=== PATIENT | male | born 1960 | race African-American/Black ===

== ENCOUNTER 2016-11-27 13:10 | Outpatient (CLI) | payer OTHER ==
--- NOTE | 2016-11-27 14:05 | RAD ---
FIVE VIEWS CERVICAL SPINE: Indication: Neck pain, radiculopathy. Comparison: None. 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 There is straightening of the normal cervical lordosis. Prevertebral soft tissues are normal appearing. Lateral masses are symmetric. The osseous neural foramina demonstrate mild narrowing on the left at C3-4, C4-5, and C5 -6. Lung apices are clear. IMPRESSION: Moderate spondylosis. POS: [facility]
== END 2016-11-27 13:11 | disposition home or self-care (01) ==
LOC: MADRAD 13:10
PROVIDERS: ATTEND Orthopaedic Surgery Orthopaedic Surgery of the Spine
DX: M48.02 Spinal stenosis, cervical region (principal); M47.22 Other spondylosis with radiculopathy, cervical region; M54.2 Cervicalgia
CPT/HCPCS: 72050

== ENCOUNTER 2017-01-02 10:18 | Outpatient (CLI) | payer OTHER ==
[2017-01-02 10:53] LABS: PTT 27.8 SEC (22.9-36.1); Prothrombin Time 13.1 SEC (12.0-14.7)
[2017-01-02 10:59] LABS: #Basophils 0.1 thou/uL (0.0-0.2); #Eosinphils 0.2 thou/uL (0.0-0.7); #Lymphocytes 2.6 thou/uL (1.20-3.40); #Monocytes 0.7 thou/uL (0.11-0.59); #Neutrophils 3.6 thou/uL (1.40-6.50); %Eosinophils 3.1 % (0.0-10.0); %Lymphocytes 35.8 % (21.0-51.0); %Monocytes 9.4 % (0.0-10.0); %Neutrophils 49.7 % (42.0-75.0); Hemoglobin 15.1 g/dL (14.0-18.0); Mean Corpuscular HGB CONC 32.9 g/dL (32.0-36.0); Mean Corpuscular Hemoglobin 30.6 pg (27.0-31.0); Mean Platelet Volume 6.8 fL (7.4-10.4); Platelet Count 215 thou/uL (130-400); RBC Distribution Width 12.3 % (11.5-14.5); Red Blood Cell (RBC) Count 4.96 mill/uL (4.70-6.10); White Blood Cell (WBC) Count 7.3 thou/uL (4.8-10.8)
[2017-01-02 11:03] LABS: ALT (SGPT) 7 U/L (8-55); AST (SGOT) 20 U/L (5-34); Albumin 4.1 g/dL (3.5-5.0); Alkaline Phosphatase 82 U/L (40-150); Anion Gap 14 mmol/L (10-20); BUN (Urea Nitrogen) 12 mg/dL (8.4-25.7); Bilirubin, Total 0.5 mg/dL (0.2-1.2); Calc. Creatinine Clearance 0 mL/min (70-130); Calcium 9.1 mg/dL (7.8-10.44); Carbon Dioxide 25 mmol/L (22-29); Chloride 108 mmol/L (98-107); Estimated GFR-MDRD Greater than 90; Globulin 3.3 g/dL (2.4-3.5); Glucose 85 mg/dL (70-105); Protein, Total 7.4 g/dL (6.0-8.3); Sodium 143 mmol/L (136-145)
--- NOTE | 2017-01-02 13:02 | RAD ---
CHEST TWO VIEWS: History: Pre op. FINDINGS: Heart size is upper limits of normal. Mediastinal structures are unremarkable. The lungs are clear o f infiltrates. There are some minimal arthritic changes of the spine. IMPRESSION: No active intrathoracic disease. POS: [facility]
[2017-01-03 09:18] LABS: Bilirubin Negative (Negative); Blood, Urine Negative (Negative); Clarity Clear (Clear); Glucose, Urine (Dipstick) Negative (Negative); Leukocyte Negative (Negative); Nitrite Negative (Negative); Protein, Urine (Dipstick) Negative (Neg-Trace); Specific Gravity, Urine 1.025 (1.005-1.030)
[2017-01-03 09:22] LABS: Bacteria/HPF Rare-Few HPF (None Seen); RBC/HPF None Seen HPF (0-3); Squamous Epithelial 0-3 HPF (0-3)
== END 2017-01-02 10:19 | disposition home or self-care (01) ==
LOC: MADLABBHPM 10:18
PROVIDERS: ATTEND Family Medicine
DX: Z01.818 Encounter for other preprocedural examination (principal)
CPT/HCPCS: 36415; 71020; 80053; 81001; 85025; 85610; 85730; 87086

== ENCOUNTER 2018-08-09 08:12 | Emergency (ER) | payer OTHER, SELFPAY ==
[2018-08-09] MEDS ORDERED: Bupivacaine PF 0.5% 30 ML VIAL ONE (08:55)
[2018-08-09] MEDS ORDERED: Triple Antibiotic Oint 1 GM Packet ONE (09:12)
== END 2018-08-09 09:35 | disposition home or self-care (01) ==
LOC: MADERS 08:12
DX: L03.031 Cellulitis of right toe (principal); Z71.6 Tobacco abuse counseling; I10 Essential (primary) hypertension; Z86.73 Personal history of transient ischemic attack (TIA), and cerebral infarction without residual deficits; F17.210 Nicotine dependence, cigarettes, uncomplicated; Z79.899 Other long term (current) drug therapy
CPT/HCPCS: 10060; 99406; S0020

== ENCOUNTER 2019-01-20 08:28 | Emergency (ER) | payer SELFPAY ==
[2019-01-20] MEDS ORDERED: Ketorolac Tromethamine 30 MG/ML VIAL ONE (09:05)
[2019-01-20 09:06] LABS: #Basophils 0.1 thou/uL (0.0-0.2); #Eosinphils 0.1 thou/uL (0.0-0.7); #Lymphocytes 3.1 thou/uL (1.20-3.40); #Monocytes 0.5 thou/uL (0.11-0.59); #Neutrophils 3.2 thou/uL (1.40-6.50); %Basophils 0.8 % (0.0-1.0); %Eosinophils 1.1 % (0.0-10.0); %Lymphocytes 44.8 % (21.0-51.0); %Monocytes 7.7 % (0.0-10.0); %Neutrophils 45.6 % (42.0-75.0); Hemoglobin 14.4 g/dL (14.0-18.0); Mean Corpuscular HGB CONC 31.8 g/dL (32.0-36.0); Mean Corpuscular Hemoglobin 28.5 pg (27.0-31.0); Mean Corpuscular Volume 89.6 fL (78.0-98.0); Mean Platelet Volume 5.8 fL (7.4-10.4); Platelet Count 220 thou/uL (130-400); RBC Distribution Width 12.8 % (11.5-14.5); Red Blood Cell (RBC) Count 5.06 mill/uL (4.70-6.10)
[2019-01-20 09:12] LABS: ALT (SGPT) 8 U/L (8-55); AST (SGOT) 20 U/L (5-34); Alkaline Phosphatase 79 U/L (40-150); Anion Gap 13 mmol/L (10-20); BUN (Urea Nitrogen) 17 mg/dL (8.4-25.7); Bilirubin, Total 0.6 mg/dL (0.2-1.2); Calc. Creatinine Clearance 0 mL/min (70-130); Calcium 8.8 mg/dL (7.8-10.44); Carbon Dioxide 25 mmol/L (22-29); Chloride 109 mmol/L (98-107); Estimated GFR-MDRD Greater than 90; Globulin 3.4 g/dL (2.4-3.5); Glucose 90 mg/dL (70-105); Protein, Total 7.4 g/dL (6.0-8.3); Sodium 143 mmol/L (136-145)
--- NOTE | 2019-01-20 11:06 | RAD ---
CHEST TWO VIEWS: HISTORY: Chest pain. FINDINGS: The lung sotelo appear clear. No infiltrate. The heart and mediastinum are unremarkable. The osseo us structures are unremarkable. IMPRESSION: No acute findings. POS: [facility]
== END 2019-01-20 12:15 | disposition home or self-care (01) ==
LOC: MADERS 08:28
DX: R07.89 Other chest pain (principal); I10 Essential (primary) hypertension; J06.9 Acute upper respiratory infection, unspecified; F17.210 Nicotine dependence, cigarettes, uncomplicated
CPT/HCPCS: 71046; 80053; 83880; 84484; 85025; 85379; 93005; 96374; J1885

== ENCOUNTER 2020-03-13 15:32 | Emergency (ER) | payer SELFPAY ==
[2020-03-13 16:13] LABS: #Basophils 0.1 thou/uL (0.0-0.2); #Eosinphils 0.1 thou/uL (0.0-0.7); #Lymphocytes 2.3 thou/uL (1.20-3.40); #Monocytes 0.8 thou/uL (0.11-0.59); #Neutrophils 4.3 thou/uL (1.40-6.50); %Basophils 0.7 % (0.0-1.0); %Eosinophils 0.8 % (0.0-10.0); %Lymphocytes 30.3 % (21.0-51.0); %Monocytes 10.4 % (0.0-10.0); %Neutrophils 57.9 % (42.0-75.0); Hemoglobin 13.8 g/dL (14.0-18.0); Mean Corpuscular HGB CONC 32.3 g/dL (32.0-36.0); Mean Corpuscular Hemoglobin 29.4 pg (27.0-31.0); Mean Corpuscular Volume 91.1 fL (78.0-98.0); Mean Platelet Volume 6.2 fL (7.4-10.4); Platelet Count 238 thou/uL (130-400); Red Blood Cell (RBC) Count 4.69 mill/uL (4.70-6.10); White Blood Cell (WBC) Count 7.5 thou/uL (4.8-10.8)
[2020-03-13 16:27] LABS: ALT (SGPT) Less than 7 U/L (8-55); AST (SGOT) 16 U/L (5-34); Alkaline Phosphatase 78 U/L (40-110); Anion Gap 13 mmol/L (10-20); BUN (Urea Nitrogen) 13 mg/dL (8.4-25.7); Bilirubin, Total 0.6 mg/dL (0.2-1.2); Calc. Creatinine Clearance 0 mL/min (70-130); Calcium 8.4 mg/dL (7.8-10.44); Carbon Dioxide 27 mmol/L (22-29); Chloride 108 mmol/L (98-107); Estimated GFR-MDRD Greater than 90; Globulin 2.8 g/dL (2.4-3.5); Glucose 90 mg/dL (70-105); Protein, Total 6.8 g/dL (6.0-8.3); Sodium 144 mmol/L (136-145)
--- NOTE | 2020-03-13 18:18 | RAD ---
EXAM: CHEST ONE VIEW HISTORY: Injury to chest. COMPARISON: 01/22/2020 FINDINGS: The cardiac silhouette and pulmonary vasculature is within normal limits. The lungs are clear. The os seous structures are intact. No interval change from prior study. IMPRESSION: No acute cardiopulmonary process.
== END 2020-03-13 16:58 | disposition home or self-care (01) ==
LOC: MADERS 15:32
DX: M94.0 Chondrocostal junction syndrome [Tietze] (principal); I10 Essential (primary) hypertension; F17.210 Nicotine dependence, cigarettes, uncomplicated; Z79.899 Other long term (current) drug therapy
CPT/HCPCS: 71045; 80053; 84484; 85025; 93005

== ENCOUNTER 2020-09-09 12:30 | Emergency (ER) | payer SELFPAY ==
[2020-09-10 03:46] LABS: SARS-CoV-2 PCR by NAA DETECTED (NotDetected)
== END 2020-09-09 12:47 | disposition home or self-care (01) ==
LOC: MADERS 12:30
DX: U07.1 COVID-19 (principal); I10 Essential (primary) hypertension; Z86.73 Personal history of transient ischemic attack (TIA), and cerebral infarction without residual deficits; F17.210 Nicotine dependence, cigarettes, uncomplicated; Z79.899 Other long term (current) drug therapy
CPT/HCPCS: 87635; 99283; U0003; U0005

== ENCOUNTER 2020-09-20 09:32 | Emergency (ER) | payer SELFPAY ==
--- NOTE | 2020-09-20 10:55 | RAD ---
PORTABLE CHEST 1 VIEW: Date: 09/20/2020 Time: 1058 hours HISTORY: Cough. COMPARISON: 03/13/2020. FINDINGS: The heart size is normal. There are multifocal patchy opacities in the lung sotelo bilaterally. No pn eumothoraces, lobar consolidations, or pleural effusions are seen. IMPRESSION: Findings suspicious for pneumonia. Correlate for COVID-19 infection. POS: [facility]
[2020-09-20] MEDS ORDERED: Iopamidol 370 76% 125 ML VIAL FS ONE (11:12)
[2020-09-20] MEDS ORDERED: Sodium Chloride 0.9% 1,000 ML ONE (11:17)
[2020-09-20 12:00] LABS: #Eosinphils 0.1 thou/uL (0.0-0.7); #Lymphocytes 1.3 thou/uL (1.20-3.40); #Monocytes 0.8 thou/uL (0.11-0.59); #Neutrophils 8.5 thou/uL (1.40-6.50); %Basophils 0.4 % (0.0-1.0); %Eosinophils 0.5 % (0.0-10.0); %Lymphocytes 11.9 % (21.0-51.0); %Monocytes 7.1 % (0.0-10.0); %Neutrophils 80.1 % (42.0-75.0); Hemoglobin 14.3 g/dL (14.0-18.0); Mean Corpuscular HGB CONC 31.9 g/dL (32.0-36.0); Mean Corpuscular Hemoglobin 28.4 pg (27.0-31.0); Mean Corpuscular Volume 89.1 fL (78.0-98.0); Mean Platelet Volume 6.3 fL (7.4-10.4); Platelet Count 360 thou/uL (130-400); Red Blood Cell (RBC) Count 5.05 mill/uL (4.70-6.10); White Blood Cell (WBC) Count 10.6 thou/uL (4.8-10.8)
[2020-09-20 12:09] LABS: ALT (SGPT) 20 U/L (8-55); AST (SGOT) 46 U/L (5-34); Albumin 3.6 g/dL (3.5-5.0); Alkaline Phosphatase 60 U/L (40-110); Anion Gap 17 mmol/L (10-20); BUN (Urea Nitrogen) 32 mg/dL (8.4-25.7); Bilirubin, Total 1.2 mg/dL (0.2-1.2); CK (CPK) 424 U/L (30-200); Calc. Creatinine Clearance 0 mL/min (70-130); Carbon Dioxide 26 mmol/L (22-29); Chloride 105 mmol/L (98-107); Globulin 4.2 g/dL (2.4-3.5); Glucose 108 mg/dL (70-105); Potassium 3.9 mmol/L (3.5-5.1); Protein, Total 7.8 g/dL (6.0-8.3); Sodium 144 mmol/L (136-145)
--- NOTE | 2020-09-20 14:09 | CT ---
CT PULMONARY ANGIOGRAM WITH IV CONTRAST AND 3-D POSTPROCESSING: HISTORY: Dyspnea and cough, d-dimer 2.20 FINDINGS: There is good contrast opacification of the pulmonary arterial vasculature without filling defects to suggest pulmonary embolism. The thoracic aorta is well opacified without aneurysm or dissection. No pleural or pericardial effusions or pneumothoraces are seen. There are multifocal patchy groundglass infiltrates bilaterally There are mild degenerative changes in the spine. Upper abdominal tomograms demonstrate unremarkable. IMPRESSION: 1. No CT evidence of pulmonary embolism. 2. Findings are highly suspicious for COVID pneumonia
[2020-09-20] MEDS ORDERED: cefTRIAXone\\ROCEPHIN 1 GM VIAL ONE (15:58)
[2020-09-20] MEDS ORDERED: guaiFENesin/Codeine Phosphate 100 mg/10 mg 5 ml UD Cup ONE (15:58)
[2020-09-20] MEDS ORDERED: Azithromycin 250 MG TAB ONE (15:58)
[2020-09-20] MEDS ORDERED: Dexamethasone 10 MG/ML VIAL ONE (15:58)
== END 2020-09-20 17:10 | disposition home or self-care (01) ==
LOC: MADERS 09:32
DX: U07.1 COVID-19 (principal); J12.82 Pneumonia due to coronavirus disease 2019; I10 Essential (primary) hypertension; F17.210 Nicotine dependence, cigarettes, uncomplicated; Z79.899 Other long term (current) drug therapy
CPT/HCPCS: 71045; 71275; 80053; 82550; 83605; 84484; 85025; 85379; 86140; 94760; 96374; 96375; J0696; J1100; J7050; Q9967

== ENCOUNTER 2020-12-23 11:02 | Emergency (ER) | payer OTHER, SELFPAY ==
[2020-12-23] MEDS ORDERED: Ketorolac Tromethamine 30 MG/ML VIAL ONE (12:06)
[2020-12-23] MEDS ORDERED: Norepinephrine 4 MG/4 ML VIAL ONE (14:11)
[2020-12-23] MEDS ORDERED: Albuterol Sulfate 2.5 mg/0.5 ml Neb ONE (16:50)
== END 2020-12-23 13:53 | disposition home or self-care (01) ==
LOC: MADERS 11:02
DX: S76.011A Strain of muscle, fascia and tendon of right hip, initial encounter (principal); S30.0XXA Contusion of lower back and pelvis, initial encounter; I10 Essential (primary) hypertension; Z86.73 Personal history of transient ischemic attack (TIA), and cerebral infarction without residual deficits; F17.210 Nicotine dependence, cigarettes, uncomplicated; Z79.899 Other long term (current) drug therapy; W01.10XA Fall on same level from slipping, tripping and stumbling with subsequent striking against unspecified object, initial encounter
CPT/HCPCS: 72100; 72170; 96372; J1885; J7611

== ENCOUNTER 2021-01-03 09:17 | Outpatient (CLI) | payer OTHER | END 2021-01-03 09:18 | disposition home or self-care (01) | LOC: MADRAD 09:17 | PROVIDERS: ATTEND Family Medicine | DX: Z86.16 Personal history of COVID-19 (principal) | CPT/HCPCS: 71046 ==

== ENCOUNTER 2021-08-25 23:20 | Emergency (ER) | payer SELFPAY ==
[2021-08-25] MEDS ORDERED: Carvedilol 6.25 MG TAB ONE (23:58)
[2021-08-26 00:47] LABS: #Basophils 0.1 thou/uL (0.0-0.2); #Eosinphils 0.1 thou/uL (0.0-0.7); #Lymphocytes 3.1 thou/uL (1.20-3.40); #Monocytes 0.7 thou/uL (0.11-0.59); #Neutrophils 4.8 thou/uL (1.40-6.50); %Basophils 1.1 % (0.0-1.0); %Eosinophils 1.4 % (0.0-10.0); %Lymphocytes 35.5 % (21.0-51.0); %Monocytes 8.1 % (0.0-10.0); %Neutrophils 53.8 % (42.0-75.0); Hemoglobin 14.1 g/dL (14.0-18.0); Mean Corpuscular HGB CONC 32.1 g/dL (32.0-36.0); Mean Corpuscular Hemoglobin 29.3 pg (27.0-31.0); Mean Corpuscular Volume 91.4 fL (78.0-98.0); Mean Platelet Volume 5.9 fL (7.4-10.4); Platelet Count 202 thou/uL (130-400); RBC Distribution Width 11.7 % (11.5-14.5); White Blood Cell (WBC) Count 8.8 thou/uL (4.8-10.8)
[2021-08-26 01:13] LABS: ALT (SGPT) 7 U/L (8-55); AST (SGOT) 17 U/L (5-34); Albumin 3.5 g/dL (3.5-5.0); Alkaline Phosphatase 64 U/L (40-110); BUN (Urea Nitrogen) 15 mg/dL (8.4-25.7); Bilirubin, Total 0.6 mg/dL (0.2-1.2); Calc. Creatinine Clearance 0 mL/min (70-130); Calcium 8.3 mg/dL (7.8-10.44); Globulin 2.5 g/dL (2.4-3.5); Glucose 96 mg/dL (70-105)
[2021-08-26 01:23] LABS: Anion Gap 16 mmol/L (10-20); Chloride 107 mmol/L (98-107); Potassium 3.6 mmol/L (3.5-5.1); Sodium 143 mmol/L (136-145)
[2021-08-26 02:12] LABS: Carbon Dioxide 24 mmol/L (22-29)
== END 2021-08-26 02:06 | disposition home or self-care (01) ==
LOC: MADERS 23:20
DX: I10 Essential (primary) hypertension (principal); Z86.73 Personal history of transient ischemic attack (TIA), and cerebral infarction without residual deficits; F17.210 Nicotine dependence, cigarettes, uncomplicated; Z79.899 Other long term (current) drug therapy
CPT/HCPCS: 71045; 80053; 84484; 85025; 93005; 94760

== ENCOUNTER 2021-12-02 23:56 | Emergency (ER) | payer BC, SELFPAY ==
[2021-12-03 00:33] LABS: #Basophils 0.1 thou/uL (0.0-0.2); #Eosinphils 0.1 thou/uL (0.0-0.7); #Lymphocytes 2.9 thou/uL (1.20-3.40); #Monocytes 0.7 thou/uL (0.11-0.59); #Neutrophils 4.3 thou/uL (1.40-6.50); %Basophils 1.5 % (0.0-1.0); %Lymphocytes 35.4 % (21.0-51.0); Mean Corpuscular HGB CONC 31.1 g/dL (32.0-36.0); Mean Corpuscular Hemoglobin 29.1 pg (27.0-31.0); Mean Corpuscular Volume 93.4 fL (78.0-98.0); Mean Platelet Volume 7.5 fL (7.4-10.4); Platelet Count 203 thou/uL (130-400); RBC Distribution Width 12.5 % (11.5-14.5); Red Blood Cell (RBC) Count 4.81 mill/uL (4.70-6.10); White Blood Cell (WBC) Count 8.1 thou/uL (4.8-10.8)
[2021-12-03 02:05] LABS: ALT (SGPT) Less than 7 U/L (8-55); AST (SGOT) 24 U/L (5-34); Alkaline Phosphatase 84 U/L (40-110); Anion Gap 18 mmol/L (10-20); BUN (Urea Nitrogen) 17 mg/dL (8.4-25.7); Bilirubin, Total 0.5 mg/dL (0.2-1.2); Calc. Creatinine Clearance 0 mL/min (70-130); Calcium 8.7 mg/dL (7.8-10.44); Carbon Dioxide 22 mmol/L (22-29); Chloride 105 mmol/L (98-107); Globulin 3.2 g/dL (2.4-3.5); Glucose 85 mg/dL (70-105); Magnesium 2.3 mg/dL (1.6-2.6); Potassium 3.5 mmol/L (3.5-5.1); Protein, Total 7.2 g/dL (6.0-8.3); Sodium 141 mmol/L (136-145)
[2021-12-03 02:27] LABS: CKMB 0.9 ng/mL (0-6.6)
[2021-12-03] MEDS ORDERED: Aspirin Chewable 81 MG TAB ONE (02:43)
[2021-12-03 03:44] LABS: Troponin I Less than 0.010 ng/mL (< 0.028)
== END 2021-12-03 03:26 | disposition short-term general hospital (02) ==
LOC: MADERS 23:56
DX: R07.89 Other chest pain (principal); R77.8 Other specified abnormalities of plasma proteins; Z86.73 Personal history of transient ischemic attack (TIA), and cerebral infarction without residual deficits; F17.210 Nicotine dependence, cigarettes, uncomplicated; Z79.899 Other long term (current) drug therapy
CPT/HCPCS: 71045; 80053; 82553; 83735; 84484; 85025; 93005

== ENCOUNTER 2022-03-15 03:44 | Emergency (ER) | payer BC ==
[2022-03-15] MEDS ORDERED: Orphenadrine Citrate 60 MG/2 ML VIAL ONE (04:38)
[2022-03-15 05:08] LABS: Bilirubin Negative (Negative); Blood, Urine Negative (Negative); Clarity Clear (Clear); Glucose, Urine (Dipstick) Negative (Negative); Ketone, Urine Negative (Negative); Leukocyte Negative (Negative); Nitrite Negative (Negative); Protein, Urine (Dipstick) Negative (Neg-Trace); Specific Gravity, Urine 1.015 (1.005-1.030); Urobilinogen 0.2 mg/dL (Less than 2)
== END 2022-03-15 05:34 | disposition home or self-care (01) ==
LOC: MADERS 03:44
DX: M54.50 Low back pain, unspecified (principal); R39.198 Other difficulties with micturition; F17.210 Nicotine dependence, cigarettes, uncomplicated; N40.0 Benign prostatic hyperplasia without lower urinary tract symptoms; E78.5 Hyperlipidemia, unspecified; I10 Essential (primary) hypertension
CPT/HCPCS: 51701; 80053; 80061; 81003; 87086; 96372; G0103; J2360

== ENCOUNTER 2022-03-15 17:29 | Outpatient (CLI) | payer BC ==
[2022-03-15 17:50] LABS: ALT (SGPT) 13 U/L (8-55); AST (SGOT) 28 U/L (5-34); Albumin 4.2 g/dL (3.4-4.8); Alkaline Phosphatase 92 U/L (40-110); Anion Gap 14 mmol/L (10-20); BUN (Urea Nitrogen) 11 mg/dL (8.4-25.7); Bilirubin, Total 0.7 mg/dL (0.2-1.2); Calc. Creatinine Clearance 0 mL/min (70-130); Calcium 9.3 mg/dL (7.8-10.44); Carbon Dioxide 26 mmol/L (23-31); Cardiac Risk 2.9 (Less than 4.5); Chloride 107 mmol/L (98-107); Cholesterol 186 mg/dl (< 200 Desired); Estimated GFR 99; Globulin 3.3 g/dL (2.4-3.5); Glucose 90 mg/dL (80-115); HDL Cholesterol 65 mg/dL (>60 Neg Risk); LDL Cholesterol, Calculated 105 mg/dL; Protein, Total 7.5 g/dL (5.8-8.1); Sodium 143 mmol/L (136-145); Triglycerides 81 mg/dL (Less than 150)
== END 2022-03-15 17:30 | disposition home or self-care (01) ==
LOC: MADLABSP 17:29
PROVIDERS: ATTEND Family Medicine
DX: N40.0 Benign prostatic hyperplasia without lower urinary tract symptoms (principal); E78.5 Hyperlipidemia, unspecified; I10 Essential (primary) hypertension
CPT/HCPCS: 80053; 80061; G0103

== ENCOUNTER 2023-05-22 16:33 | Outpatient (CLI) | payer OTHER | END 2023-05-22 16:34 | disposition home or self-care (01) | LOC: MADRAD 16:33 | PROVIDERS: ATTEND Family Medicine | DX: M25.551 Pain in right hip (principal); M79.651 Pain in right thigh; R10.2 Pelvic and perineal pain; M16.11 Unilateral primary osteoarthritis, right hip | CPT/HCPCS: 72170 ==

== ENCOUNTER 2024-02-12 13:24 | Emergency (ER) | payer OTHER ==
[2024-02-12 14:21] LABS: #Basophils 0.1 thou/uL (0.0-0.2); #Eosinphils 0.1 thou/uL (0.0-0.7); #Lymphocytes 2.2 thou/uL (1.20-3.40); #Monocytes 0.6 thou/uL (0.11-0.59); #Neutrophils 2.6 thou/uL (1.40-6.50); %Basophils 1.4 % (0.0-1.0); %Eosinophils 1.6 % (0.0-10.0); %Lymphocytes 40.3 % (21.0-51.0); %Monocytes 10.5 % (0.0-10.0); %Neutrophils 46.2 % (42.0-75.0); Hematocrit 43.7 % (42.0-52.0); Hemoglobin 13.3 g/dL (14.0-18.0); Mean Corpuscular HGB CONC 30.3 g/dL (32.0-36.0); Mean Corpuscular Hemoglobin 27.9 pg (27.0-31.0); Mean Corpuscular Volume 91.9 fl (78.0-98.0); Mean Platelet Volume 6.4 fL (7.4-10.4); Platelet Count 190 10x3/uL (130-400); RBC Distribution Width 14.2 % (11.5-14.5); Red Blood Cell (RBC) Count 4.76 mill/uL (4.70-6.10); White Blood Cell (WBC) Count 5.6 10x3/uL (4.8-10.8)
[2024-02-12 14:52] LABS: Troponin I Less than 0.010 ng/mL (< 0.028)
[2024-02-12 14:53] LABS: ALT (SGPT) 7 U/L (8-55); AST (SGOT) 25 U/L (5-34); Albumin 3.5 g/dL (3.4-4.8); Alkaline Phosphatase 92 U/L (40-110); Anion Gap 14 mmol/L (10-20); BUN (Urea Nitrogen) 10 mg/dL (8.4-25.7); Bilirubin, Total 0.5 mg/dL (0.2-1.2); Calc. Creatinine Clearance 0 mL/min (70-130); Calcium 8.5 mg/dL (7.8-10.44); Carbon Dioxide 24 mmol/L (23-31); Chloride 109 mmol/L (98-107); Estimated GFR 94; Globulin 3.3 g/dL (2.4-3.5); Glucose 94 mg/dL (80-115); Lipase 48 U/L (8-78); Magnesium 2.1 mg/dL (1.6-2.6); Protein, Total 6.8 g/dL (5.8-8.1); Sodium 143 mmol/L (136-145)
== END 2024-02-12 16:10 | disposition home or self-care (01) ==
LOC: MADERS 13:24
DX: M94.0 Chondrocostal junction syndrome [Tietze] (principal); I10 Essential (primary) hypertension; E78.00 Pure hypercholesterolemia, unspecified; Z87.891 Personal history of nicotine dependence; Z79.82 Long term (current) use of aspirin; Z79.899 Other long term (current) drug therapy
CPT/HCPCS: 71045; 80053; 83690; 83735; 84484; 85025; 93005

== ENCOUNTER 2025-07-24 11:48 | Emergency (ER) | payer OTHER | END 2025-07-24 13:15 | disposition home or self-care (01) | LOC: MADERS 11:48 | DX: M17.12 Unilateral primary osteoarthritis, left knee (principal); I10 Essential (primary) hypertension; Z87.891 Personal history of nicotine dependence; Z79.82 Long term (current) use of aspirin; Z79.899 Other long term (current) drug therapy | CPT/HCPCS: 99283 ==